=== PATIENT | female | born 1980 | race Caucasian/White ===

== ENCOUNTER 2018-06-12 12:57 | Outpatient (CLI) | payer OTHER | END 2018-06-12 12:58 | disposition home or self-care (01) | LOC: C.LAB 12:57 ==

== ENCOUNTER 2018-06-21 11:16 | Outpatient (CLI) | payer OTHER | END 2018-06-21 11:17 | disposition home or self-care (01) | LOC: C.RADH 11:16 → C.LAB 11:17 | DX: M25.512 Pain in left shoulder (principal); M79.89 Other specified soft tissue disorders; R94.6 Abnormal results of thyroid function studies ==

== ENCOUNTER 2018-06-27 10:17 | Outpatient (CLI) | payer OTHER | END 2018-06-27 10:18 | disposition home or self-care (01) | LOC: C.CTH 10:17 ==